=== PATIENT | male | born 1970 | race Caucasian/White ===

== ENCOUNTER 2020-11-18 09:42 | Emergency (ER) | payer BC ==
[~2020-11-18] VITALS: Ht 172.7 cm; Wt 93.0 kg
[2020-11-18] MEDS: LORAZEPAM 1 MG TAB PO ONE (11:30)
[2020-11-18] MEDS ORDERED: LORAZEPAM 1 MG TAB ONE (11:36)
[2020-11-18] MEDS ORDERED: ZOLOFT50 MG PO (12:05)
== END 2020-11-18 12:19 | disposition home or self-care (01) ==
LOC: ER 10:05
DX: F41.9 Anxiety disorder, unspecified (principal); I10 Essential (primary) hypertension
CPT/HCPCS: 36415; 82948; 93005; 99283